=== PATIENT | male | born 1960 | race Caucasian/White ===

== ENCOUNTER 2019-04-09 23:46 | Inpatient (IN) | payer MEDICAID ==
[~2019-04-09] VITALS: Ht 172.7 cm; Wt 102.5 kg
[2019-04-10] VITALS (11 sets, daily range): BP systolic 126–158; BP diastolic 25–112
[2019-04-10] MEDS ORDERED: MAGNESIUM/ALUMINUM HYDROXIDE/SIMETHICONE 30ML UDC PO ONE (00:15)
[2019-04-10] MEDS ORDERED: VISCOUS LIDOCAINE 2% 15 ML UDC PO ONE (00:15)
[2019-04-10] MEDS ORDERED: ASPIRIN 81MG TABLET PO ONE (00:15)
[2019-04-10 00:22] LABS: BASOPHILS % 0.4 % (0.0-2.0); EOSINOPHILS % 0.2 % (0.0-5.0); HEMATOCRIT. 40.3 % (42.0-52.0); HEMOGLOBIN. 13.1 g/dL (14.0-18.0); LYMPHOCYTES % 14.9 % (20.0-50.0); MEAN CORPUSCULAR HEMOGLOBIN 26.8 pg (28.0-32.0); MEAN CORPUSCULAR VOLUME 82.6 fL (80.0-94.0); MEAN PLATELET VOLUME 7.9 fl (7.4-10.4); MONOCYTES % 4.9 % (2.0-8.0); NEUTROPHILS % 79.6 % (40.0-76.0); PLATELET 217 x1000/uL (130-400); RED BLOOD CELL COUNT 4.88 mill/uL (4.7-6.1); RED CELL DISTRIBUTION WIDTH 17.2 % (11.6-14.6)
[2019-04-10 00:32] LABS: CHLORIDE 110 mEq/L (98-107)
[2019-04-10] MEDS ORDERED: ONDANSETRON HCL 4MG/2ML INJ IV PRN ×2 (08:30→15:00)
[2019-04-10] MEDS ORDERED: ACETAMINOPHEN 325MG TABLET PO PRN ×2 (08:30→15:00)
[2019-04-10] MEDS: AMLODIPINE 5MG TABLET PO SCH ×2 (09:00→20:18)
[2019-04-10] MEDS: ASPIRIN 81MG TABLET PO SCH (09:00)
[2019-04-10] MEDS ORDERED: INFLUENZA VIRUS VACCINE(AFLURIA) 0.5ML SYR IM ONE (10:45)
[2019-04-10] MEDS ORDERED: ATOR10TA MT (12:07)
[2019-04-10] MEDS ORDERED: WARF1TAB85 MT (12:07)
[2019-04-10] MEDS ORDERED: NITR0.4T SL (12:07)
[2019-04-10] MEDS ORDERED: CARV3.1242 MT (12:07)
[2019-04-10] MEDS ORDERED: CLOP75TA33 MT (12:07)
[2019-04-10] MEDS ORDERED: FINA1TAB18 MT (12:07)
[2019-04-10] MEDS ORDERED: FURO40TA5 PO (12:07)
[2019-04-10] MEDS: HYDRALAZINE 20MG/ML VIAL IV ONE ×2 (13:15→13:35)
[2019-04-10] MEDS ORDERED: IOHEXOL-300 100 ML BOTTLE ONE (14:01)
[2019-04-10] MEDS ORDERED: LIDOCAINE HCL 1% 20ML VIAL (Pyxis) INJ ONE (14:01)
[2019-04-10] MEDS ORDERED: MIDAZOLAM HCL 2 MG/2 ML VIAL ONE (14:02)
[2019-04-10] MEDS ORDERED: FENTANYL CITRATE/PF 50MCG/ML 2ML VIAL ONE (14:02)
[2019-04-10] MEDS ORDERED: HEPARIN SODIUM 1,000 UNIT/1ML VIAL IV ONE (14:13)
[2019-04-10] MEDS ORDERED: NICARDIPINE 100MCG/ML 10ML VIAL (CATH LAB) IV ONE (14:13)
[2019-04-10] MEDS ORDERED: NITROGLYCERIN 50MCG/ML 10ML VIAL (CATH LAB) IV ONE (14:13)
[2019-04-10] MEDS ORDERED: CAPTOPRIL 12.5MG TABLET PO NR (14:45)
[2019-04-10] MEDS: FUROSEMIDE 20MG TABLET PO SCH ×3 (14:45→16:25)
[2019-04-10] MEDS ORDERED: ATROPINE SULFATE 1MG/10ML SYR IV PRN (15:00)
[2019-04-10 15:56] LABS: CLARITY URINE CLEAR (CLEAR); COLOR URINE DARK YELLOW (YELLOW); KETONES URINE NEGATIVE (NEGATIVE); LEUKOCYTE ESTERASE URINE 1+ (NEGATIVE); NITRITE URINE NEGATIVE (NEGATIVE); OCCULT BLOOD URINE 1+ (NEGATIVE); PH URINE 5.5 (4.5-8.0); PROTEIN URINE 3+ (NEGATIVE); SPECIFIC GRAVITY URINE 1.027 (1.005-1.030)
[2019-04-10 16:21] LABS: *AMPHETAMINES SCREEN URINE NEGATIVE (NEGATIVE); *BARBITURATES SCREEN URINE NEGATIVE (NEGATIVE); *BENZODIAZEPINES SCREEN URINE NEGATIVE (NEGATIVE); CANNABINOID URINE SCREEN NEGATIVE (NEGATIVE); OPIATES URINE SCREEN NEGATIVE (NEGATIVE); PHENCYCLIDINE URINE SCREEN NEGATIVE (NEGATIVE)
[2019-04-10 16:22] LABS: *COCAINE SCREEN URINE NEGATIVE (NEGATIVE); METHADONE URINE SCREEN NEGATIVE (NEGATIVE)
[2019-04-10] MEDS: CARVEDILOL 3.125 MG TABLET PO SCH (20:17)
[2019-04-10] MEDS: FAMOTIDINE 20MG TABLET PO SCH (20:18)
[2019-04-11] VITALS (12 sets, daily range): BP systolic 111–152; BP diastolic 70–100
[2019-04-11 07:23] LABS: BASOPHILS % 0.7 % (0.0-2.0); EOSINOPHILS % 1.4 % (0.0-5.0); HEMATOCRIT. 40.2 % (42.0-52.0); LYMPHOCYTES % 33.9 % (20.0-50.0); MEAN CORPUSCULAR HEMOGLOBIN 26.4 pg (28.0-32.0); MEAN CORPUSCULAR VOLUME 81.8 fL (80.0-94.0); MONOCYTES % 7.7 % (2.0-8.0); NEUTROPHILS % 56.3 % (40.0-76.0); PLATELET 226 x1000/uL (130-400); RED BLOOD CELL COUNT 4.91 mill/uL (4.7-6.1); RED CELL DISTRIBUTION WIDTH 16.6 % (11.6-14.6)
[2019-04-11 07:44] LABS: CHLORIDE 108 mEq/L (98-107)
[2019-04-11] MEDS: ASPIRIN 81MG TABLET PO SCH (09:36)
[2019-04-11] MEDS: CARVEDILOL 3.125 MG TABLET PO SCH ×2 (09:36→21:11)
[2019-04-11] MEDS: AMLODIPINE 5MG TABLET PO SCH ×2 (09:37→21:11)
[2019-04-11] MEDS: CAPTOPRIL 12.5MG TABLET PO SCH ×2 (14:10→22:57)
[2019-04-11] MEDS ORDERED: SIMETHICONE 80MG TABLET CHEW PO PRN (16:15)
[2019-04-11] MEDS ORDERED: CEFTRIAXONE 1 G PREMIX 50 ML IV NR (16:30)
[2019-04-11] MEDS: DOCUSATE SODIUM 250MG CAPSULE PO SCH (16:38)
[2019-04-11] MEDS: TAMSULOSIN HCL 0.4MG SR CAPSULE PO SCH (16:38)
[2019-04-11] MEDS ORDERED: CAPTOPRIL 12.5MG TABLET PO SCH (17:00)
[2019-04-11] MEDS ORDERED: DIATR MEGLU/DIATRIZOATE SOLN 30ML PO NR (17:00)
[2019-04-11] MEDS: FAMOTIDINE 20MG TABLET PO SCH (21:11)
[2019-04-12] VITALS (8 sets, daily range): BP systolic 112–155; BP diastolic 48–104
[2019-04-12] MEDS: CAPTOPRIL 12.5MG TABLET PO SCH (05:35)
[2019-04-12 07:48] LABS: BASOPHILS % 0.8 % (0.0-2.0); EOSINOPHILS % 2.1 % (0.0-5.0); HEMATOCRIT. 39.9 % (42.0-52.0); HEMOGLOBIN. 12.7 g/dL (14.0-18.0); LYMPHOCYTES % 33.3 % (20.0-50.0); MEAN CORPUSCULAR HEMOGLOBIN 26.2 pg (28.0-32.0); MEAN CORPUSCULAR VOLUME 82.2 fL (80.0-94.0); MEAN PLATELET VOLUME 8.2 fl (7.4-10.4); MONOCYTES % 6.7 % (2.0-8.0); NEUTROPHILS % 57.1 % (40.0-76.0); PLATELET 224 x1000/uL (130-400); RED BLOOD CELL COUNT 4.85 mill/uL (4.7-6.1)
[2019-04-12 08:30] LABS: CHLORIDE 109 mEq/L (98-107)
[2019-04-12] MEDS: DOCUSATE SODIUM 250MG CAPSULE PO SCH (08:38)
[2019-04-12] MEDS: AMLODIPINE 5MG TABLET PO SCH (08:38)
[2019-04-12] MEDS: CARVEDILOL 3.125 MG TABLET PO SCH (08:39)
[2019-04-12] MEDS: TAMSULOSIN HCL 0.4MG SR CAPSULE PO SCH (08:39)
[2019-04-12] MEDS ORDERED: SPIRONOLACTONE 25MG TABLET PO SCH (11:30)
[2019-04-12] MEDS: ASPIRIN 81MG TABLET PO SCH (11:35)
[2019-04-12] MEDS: FUROSEMIDE 20MG TABLET PO SCH (11:36)
[2019-04-12] MEDS ORDERED: ASPI-1160 PO (12:16)
[2019-04-12] MEDS ORDERED: LOSA25TA26 MT (12:16)
[2019-04-12] MEDS ORDERED: TAMS-11 PO (12:16)
[2019-04-12] MEDS ORDERED: FURO20TA4 PO (12:16)
[2019-04-12] MEDS ORDERED: SPIR25TA PO (12:16)
[2019-04-12] MEDS ORDERED: COR6 PO (12:16)
[2019-04-12] MEDS ORDERED: IOHEXOL-300 100 ML BOTTLE ONE (14:14)
[2019-04-12] MEDS ORDERED: CARVEDILOL 6.25 MG TABLET PO SCH (21:00)
== END 2019-04-12 16:35 | disposition home or self-care (01) | DRG 190 ==
LOC: ER 23:46 → 6WST 04-10 02:44 → ENRESERV 04-10 07:21 → 3WST 04-10 15:12
PROVIDERS: ADMIT Internal Medicine; ATTEND Internal Medicine
PROC: 4A023N7 Measurement of Cardiac Sampling and Pressure, Left Heart, Percutaneous Approach (ICD-10-PCS; principal; 2019-04-10)
PROC: B2111ZZ Fluoroscopy of Multiple Coronary Arteries using Low Osmolar Contrast (ICD-10-PCS; 2019-04-10)
PROC: B2151ZZ Fluoroscopy of Left Heart using Low Osmolar Contrast (ICD-10-PCS; 2019-04-10)
DX: I21.4 Non-ST elevation (NSTEMI) myocardial infarction (principal); I50.21 Acute systolic (congestive) heart failure; E44.0 Moderate protein-calorie malnutrition; I11.0 Hypertensive heart disease with heart failure; I25.10 Atherosclerotic heart disease of native coronary artery without angina pectoris; N40.0 Benign prostatic hyperplasia without lower urinary tract symptoms; J44.9 Chronic obstructive pulmonary disease, unspecified; N39.0 Urinary tract infection, site not specified; E78.00 Pure hypercholesterolemia, unspecified; I25.2 Old myocardial infarction; Z79.899 Other long term (current) drug therapy; Z86.73 Personal history of transient ischemic attack (TIA), and cerebral infarction without residual deficits; Z68.34 Body mass index [BMI] 34.0-34.9, adult; Z87.442 Personal history of urinary calculi
CPT/HCPCS: 36415; 71045; 74177; 80048; 80061; 80305; 81003; 83880; 84443; 84484; 90686; 93005; 93306; 93458; 93970; 99285; C1769; C1887; C1893; J0360; J0696; J1644; J2250; J3010; J3490; Q9963; Q9967; A4315

== ENCOUNTER 2019-08-22 04:52 | Emergency (ER) | payer MEDICAID ==
[~2019-08-22] VITALS: Ht 172.7 cm; Wt 65.0 kg
[~2019-08-22 04:52] MED LIST: ASPI-1160 PO; ATOR10TA MT; CARV3.1242 MT; CLOP75TA33 MT; COR6 PO; FINA1TAB18 MT; FURO20TA4 PO; FURO40TA5 PO; LOSA25TA26 MT; NITR0.4T SL; SPIR25TA PO; TAMS-11 PO; WARF1TAB85 MT
[2019-08-22] MEDS ORDERED: OXYMETAZOLINE HCL NASAL SPRAY 15ML BOTHNSTRLS STA (05:08)
[2019-08-22] MEDS ORDERED: TRANEXAMIC ACID 1,000 MG/10 ML TP ONE (06:15)
[2019-08-22 06:26] LABS: BASOPHILS % 1.1 % (0.0-2.0); HEMATOCRIT. 36.5 % (42.0-52.0); LYMPHOCYTES % 22.2 % (20.0-50.0); MEAN CORPUSCULAR VOLUME 76.3 fL (80.0-94.0); MEAN PLATELET VOLUME 7.8 fl (7.4-10.4); MONOCYTES % 8.2 % (2.0-8.0); NEUTROPHILS % 64.5 % (40.0-76.0); PLATELET 187 x1000/uL (130-400); RED BLOOD CELL COUNT 4.79 mill/uL (4.7-6.1); RED CELL DISTRIBUTION WIDTH 20.5 % (11.6-14.6)
[2019-08-22 06:31] LABS: CHLORIDE 110 mEq/L (98-107)
[2019-08-22 06:35] LABS: INR 1.7; PARTIAL THROMBOPLASTIN TIME 31.2 sec (23.4-31.0); PROTHROMBIN TIME 17.8 sec (9.6-11.0)
[2019-08-22] MEDS ORDERED: CEFAZOLIN 1000MG PREMIX 50 ML IV ONE (06:45)
[2019-08-22 07:39] VITALS: BP 148/74
== END 2019-08-22 07:49 | disposition home or self-care (01) ==
LOC: ER 04:52
DX: R04.0 Epistaxis (principal); I10 Essential (primary) hypertension
CPT/HCPCS: 30901; 36415; 80053; 85025; 85610; 85730; 86850; 86900; 86901; 96365; 99284; J0690